=== PATIENT | female | born 1980 | race African-American/Black ===

== ENCOUNTER 2016-12-08 16:20 | Inpatient (IN) | payer SELFPAY ==
[~2016-12-08] VITALS: Ht 170.2 cm; Wt 96.1 kg
[~2016-12-08 16:20] MED LIST: CLIN1CAP6 PO; LORTA5 PO
[2016-12-08 16:21] VITALS: BP 155/95; PULSE 118; RESP 24; TEMP 103.3; O2SAT 100
[2016-12-08] MEDS ORDERED: SODIUM CHLOR 0.9% 1000 ML INJ 1,000 ML IV SCH (16:34)
[2016-12-08] MEDS ORDERED: SODIUM CHLORIDE 0.9% FLUSH 5 ML FLUSH IVF PRN (16:45)
[2016-12-08] MEDS ORDERED: ONDANSETRON HCL 4 MG/2 ML VIAL IVP ONE (16:45)
--- NOTE | 2016-12-08 16:45 | PD ---
HPI Chief Complaint: Cold / Flu Symptoms Time Seen by Provider: 16:34 Travel History International Travel<30 days: No Contact w/Intl Traveler<30days: No Traveled to known affect area: No History of Present Illness HPI 36-year-old female patient with history of hypertension, presents to the ER today for 2 days history of cough, sore throat, malaise, body aches, chest pain , fevers, nausea, vomiting, and diarrhea. She states that she has been staying with a friend for 2 days and she has been sleeping on the floor, states that she is not sure whether her friend is sick. Modifying Factors: None Associated Signs & Symptoms: Body aches, cough, sore throat, headaches, nausea, vomiting, diarrhea, chest pains Risk Factors: None PFSH Past Medical History Anxiety: Yes Depression: Yes Hypertension: Yes Medical other: Yes (MRSA) Immunizations Current: Yes ?: Not : 5 Para: 5 Tubal Ligation: Yes Past Surgical History Section: Yes Cholecystectomy: Yes Other Surgery: Yes (SCOPE) Social History Alcohol Use: No Tobacco Use: No Substance Use: Yes (weed, has taken lortab, percocet, cocaine recently) Allergies-Medications (Allergen,Severity, Reaction): Coded Allergies: Amoxicillin (Verified Allergy, Intermediate, hives, 12/08/16) Penicillin (Verified Allergy, Intermediate, hives, 12/08/16) Reported Meds & Prescriptions Reported Meds & Active Scripts Active No Active Prescriptions or Reported Medications Review of Systems Except as stated in HPI: all other systems reviewed are Neg Physical Exam Narrative GENERAL: Middle-age well-developed -[place] female in moderate distress , vomiting in the ER. Alert, awake, oriented 3. SKIN: Warm and dry. HEAD: Atraumatic. Normocephalic. EYES: Pupils equal and round. No scleral icterus. No injection or drainage. ENT: No nasal bleeding or discharge. Mucous membranes pink and moist. Significant pharyngeal erythema with notable for whitish tonsillar exudates. NECK: Trachea midline. No JVD. CARDIOVASCULAR: Regular rate and rhythm. No murmur appreciated. RESPIRATORY: No accessory muscle use. Clear to auscultation. Breath sounds equal bilaterally. GASTROINTESTINAL: Abdomen soft, mild epigastric tenderness without guarding or rebound, nondistended. Hepatic and splenic margins not palpable. MUSCULOSKELETAL: No obvious deformities. No clubbing. No cyanosis. No edema. NEUROLOGICAL: Awake and alert. No obvious cranial nerve deficits. Motor grossly within normal limits. Normal speech. PSYCHIATRIC: Appropriate mood and affect; insight and judgment normal. Data Data Last Documented VS Vital Signs Date Time Temp Pulse Resp B/P Pulse Ox O2 Delivery O2 Flow Rate FiO2 12/08/16 19:02 97 16 137/92 100 Room Air 12/08/16 16:21 103.3 Orders Complete Blood Count With Diff (12/08/16 16:34) Comprehensive Metabolic Panel (12/08/16 16:34) Lipase (12/08/16 16:34) Urinalysis - C+S If Indicated (12/08/16 16:34) Iv Access Insert/Monitor (12/08/16 16:34) Ecg Monitoring (12/08/16 16:34) Oximetry (12/08/16 16:34) Ondansetron Inj (Zofran Inj) (12/08/16 16:45) Sodium Chlor 0.9% 1000 Ml Inj (Ns 1000 M (12/08/16 16:34) Sodium Chloride 0.9% Flush (Ns Flush) (12/08/16 16:45) Electrocardiogram (12/08/16 16:34) Chest, Single Ap (12/08/16 16:34) Ed Urine Pregnancytest Poc (12/08/16 16:34) Group A Rapid Strep Screen (12/08/16 16:34) Influenzae A/B Antigen (12/08/16 16:34) Blood Culture (12/08/16 16:39) Lactic Acid Sepsis Protocol (12/08/16 16:39) Strep Culture (Group A) (12/08/16 16:40) Vancomycin Inj (Vancomycin Inj) (12/08/16 17:58) Cefepime Inj (Maxipime Inj) (12/08/16 17:58) Urinary Catheter Insert/Apply (12/08/16 18:01) Morphine Inj (Morphine Inj) (12/08/16 18:45) Admit Order (Ed Use Only) (12/08/16 19:01) Labs Laboratory Tests Test 12/08/16 12/08/16 12/08/16 16:40 16:45 17:00 White Blood Count 22.0 TH/MM3 Red Blood Count 4.93 MIL/MM3 Hemoglobin 12.9 GM/DL Hematocrit 40.4 % Mean Corpuscular Volume 82.0 FL Mean Corpuscular Hemoglobin 26.3 PG Mean Corpuscular Hemoglobin 32.0 % Concent Red Cell Distribution Width 15.9 % Platelet Count 344 TH/MM3 Mean Platelet Volume 8.1 FL Neutrophils (%) (Auto) 89.4 % Lymphocytes (%) (Auto) 6.0 % Monocytes (%) (Auto) 4.3 % Eosinophils (%) (Auto) 0.0 % Basophils (%) (Auto) 0.3 % Neutrophils # (Auto) 19.6 TH/MM3 Lymphocytes # (Auto) 1.3 TH/MM3 Monocytes # (Auto) 0.9 TH/MM3 Eosinophils # (Auto) 0.0 TH/MM3 Basophils # (Auto) 0.1 TH/MM3 CBC Comment DIFF FINAL Differential Comment Sodium Level 137 MEQ/L Potassium Level 3.5 MEQ/L Chloride Level 100 MEQ/L Carbon Dioxide Level 28.7 MEQ/L Anion Gap 8 MEQ/L Blood Urea Nitrogen 9 MG/DL Creatinine 1.02 MG/DL Estimat Glomerular Filtration 73 ML/MIN Rate Random Glucose 97 MG/DL Calcium Level 9.7 MG/DL Total Bilirubin 0.8 MG/DL Aspartate Amino Transf 32 U/L (AST/SGOT) Alanine Aminotransferase 27 U/L (ALT/SGPT) Alkaline Phosphatase 94 U/L Total Protein 8.9 GM/DL Albumin 4.1 GM/DL Lipase 117 U/L Lactic Acid Level 1.9 mmol/L Urine Color LIGHT-YELLOW Urine Turbidity CLEAR Urine pH 8.0 Urine Specific Sunburst 1.005 Urine Protein NEG mg/dL Urine Glucose (UA) NEG mg/dL Urine Ketones NEG mg/dL Urine Occult Blood TRACE Urine Nitrite NEG Urine Bilirubin NEG Urine Urobilinogen LESS THAN 2.0 MG/DL Urine Leukocyte Esterase NEG Urine RBC 1 /hpf Urine WBC LESS THAN 1 /hpf Urine Squamous Epithelial 4 /hpf Cells Urine Bacteria RARE /hpf Microscopic Urinalysis Comment CULT NOT INDICATED MDM Medical Decision Making Medical Screen Exam Complete: Yes Emergency Medical Condition: Yes Medical Record Reviewed: Yes Interpretation(s) Laboratory Tests Test 12/08/16 12/08/16 16:40 17:00 White Blood Count 22.0 TH/MM3 (4.0-11.0) Mean Corpuscular Hemoglobin 26.3 PG (27.0-34.0) Neutrophils (%) (Auto) 89.4 % (16.0-70.0) Lymphocytes (%) (Auto) 6.0 % (9.0-44.0) Neutrophils # (Auto) 19.6 TH/MM3 (1.8-7.7) Creatinine 1.02 MG/DL (0.50-1.00) Estimat Glomerular Filtration 73 ML/MIN (>89) Rate Total Protein 8.9 GM/DL (6.4-8.2) Urine Occult Blood TRACE (NEG) Urine Bacteria RARE /hpf (NONE) Last 24 hours Impressions Chest X-Ray 12/08/16 1634 Signed Impressions: Service Date/Time: November 18:13 - CONCLUSION: No evidence of acute cardiopulmonary disease. Rudy Schaeffer MD Differential Diagnosis Influenza versus viral syndrome versus strep pharyngitis versus sepsis versus dehydration versus metabolic issues Narrative Course Chest x-ray did not show any signs of acute pulmonary processes. Patient does not have influenza. UA did not show any signs of significant UTI. She has significant leukocytosis. IV fluids and IV anti-eyes were initiated after cultures have been drawn. At this point, my plan would be to admit her for further treatment evaluation of sepsis of unknown origins. Case is discussed with Dr. Bernabe for admission. Sepsis Criteria SIRS Criteria (2 or more): Temp > 100.9 or < 96.8, Heart rate over 90, WBC > 44076, < 4000 or > 10% bands Severe Sepsis (+one): Lactate >2 Diagnosis Primary Impression: Sepsis Admitting Information Admitting Physician Requests: Admit Scripts No Active Prescriptions or Reported Meds Catarino Linares MD Dec 08, 2016 16:45
[2016-12-08 17:13] LABS: AUTOMATED NEUTROPHIL # 19.6 TH/MM3 (1.8-7.7); BASOPHIL # 0.1 TH/MM3 (0-0.2); BASOPHIL % 0.3 % (0.0-2.0); HEMATOCRIT 40.4 % (35.0-46.0); HEMO FLAGS DIFF FINAL; LYMPHOCYTE # 1.3 TH/MM3 (1.0-4.8); MEAN CORPUSCULAR HEMOGLOBIN 26.3 PG (27.0-34.0); MONO % 4.3 % (0.0-8.0); NEUT % 89.4 % (16.0-70.0); PLATELET COUNT 344 TH/MM3 (150-450); RED BLOOD COUNT 4.93 MIL/MM3 (4.00-5.30); RED CELL DISTRIBUTION WIDTH 15.9 % (11.6-17.2)
[2016-12-08 17:27] LABS: ALKALINE PHOSPHATASE 94 U/L (45-117); TOTAL BILIRUBIN ADULT 0.8 MG/DL (0.2-1.0)
[2016-12-08 17:28] LABS: ALT (GPT) 27 U/L (10-53); ANION GAP 8 MEQ/L (5-15); AST (GOT) 32 U/L (15-37); BICARBONATE 28.7 MEQ/L (21.0-32.0); BLOOD UREA NITROGEN 9 MG/DL (7-18); CHLORIDE 100 MEQ/L (98-107); GLOMERULAR FILTRATION RATE 73 ML/MIN (>89); SODIUM (NA) 137 MEQ/L (136-145)
[2016-12-08 17:31] LABS: POTASSIUM 3.5 MEQ/L (3.5-5.1)
[2016-12-08 17:54] LABS: BACTERIA, URINE RARE /hpf; BLOOD, URINE TRACE (NEG); COMMENT (UR) CULT NOT INDICATED; CULTURE IF INDICATED CULT NOT INDICATED; GLUCOSE,URINE NEG (NEG); KETONE, URINE NEG (NEG); NITRITE,URINE NEG (NEG); SQUAMOUS EPITHELIAL CELL URINE 4 /hpf (0-5); URINE COLOR LIGHT-YELLOW (YELLW/STRAW)
[2016-12-08] MEDS ORDERED: VANCOMYCIN INJ 1,000 MG in SODIUM CHLOR 0.9% 250 ML INJ 250 ML IV STA (17:58)
[2016-12-08] MEDS ORDERED: CEFEPIME INJ 2,000 MG in SODIUM CHLORIDE 0.9% INJ 100 ML IV STA (17:58)
[2016-12-08] MEDS ORDERED: MORPHINE SULFATE 4 MG/ML INJ IV PUSH ONE (18:45)
--- NOTE | 2016-12-08 18:49 | RADRPT ---
EXAM DATE/TIME: 12/08/2016 18:13 [facility] COMPARISON: No previous studies available for comparison. INDICATIONS : Short of breath, vomiting. MEDICAL HISTORY : None. SURGICAL HISTORY : None. ENCOUNTER: Initial ACUITY: 1 day PAIN SCORE: 0/10 LOCATION: Bilateral chest FINDINGS: A single view of the chest demonstrates the lungs to be symmetrically aerated without evidence of mas s, infiltrate or effusion. The cardiomediastinal contours are unremarkable. Osseous structures are intact. CONCLUSION: No evidence of acute cardiopulmonary disease. Rudy Schaeffer MD on December 08, 2016 at 18:48 Board Certified Radiologist. This report was verified electronically.
[2016-12-08 19:02] VITALS: BP 137/92; PULSE 97; RESP 16; O2SAT 100
[2016-12-08] MEDS ORDERED: SODIUM CHLORIDE 0.9% FLUSH 5 ML FLUSH FLUSH PRN (20:00)
[2016-12-08] MEDS ORDERED: NALOXONE HCL 0.4 MG/ML AMP IV PRN (20:00)
[2016-12-08 20:08] VITALS: BP 137/95; PULSE 100; RESP 16; TEMP 100.7; O2SAT 100
[2016-12-08] MEDS ORDERED: DIATRIZOATE MEGLUM/DIATRIZOATE SOD 9 ML CUP PO ONE (20:45)
[2016-12-08] MEDS ORDERED: DIATRIZOATE MEGLUM/DIATRIZOATE SOD 9 ML CUP ONE (20:54)
[2016-12-08] MEDS: MORPHINE SULFATE 4 MG/ML INJ IV PUSH PRN (21:05)
[2016-12-08] MEDS: ACETAMINOPHEN 325 MG TAB PO PRN (21:05)
[2016-12-08 21:06] VITALS: BP 154/98; TEMP 100
[2016-12-08] MEDS: SODIUM CHLORIDE 0.9% FLUSH 5 ML FLUSH FLUSH SCH (21:06)
[2016-12-08 21:48] VITALS: BP 142/80; PULSE 92; RESP 20; TEMP 100.5; O2SAT 100
--- NOTE | 2016-12-08 22:10 | HHI.HP ---
[facility] No Primary Care Physician Admission Diagnosis sepsis Diagnoses: Chief Complaint: cough, sore throat ,abdominal pain Travel History International Travel<30 Days: No Contact w/Intl Traveler <30 Da: No Traveled to Known Affected Are: No Sepsis Criteria SIRS Criteria (2 or more): Temp > 100.9 or < 96.8, Heart rate over 90, WBC > 71090, < 4000 or > 10% bands History of Present Illness 36 y/o female with a history of HTN, anxiety and depression who is currently homeless presented to the ER with complains of cough, sore throat, weakness, nausea, vomiting and diarrhea. Patient states all her symptoms began 2 days ago and she has been very weak. She states she has had vomiting 2-3 times a day and diarrhea 5 times a day. She currently is sleeping on a friends floor and does not think anyone is sick. She states last week she thought she has a yeast infection and treated it with Monistat but is unsure if she still has it. She is acting as if she is in sever pain and moaning. She states her abdominal pain radiates to her back and is sharp. When she is asked many questions she moans louder. She does deny any chest pain or short of breath. Patient does not take any medications at home due to lack of insurance. Review of Systems Constitutional: COMPLAINS OF: Fever, Chills Respiratory: COMPLAINS OF: Cough, DENIES: Sputum production, Shortness of breath Cardiovascular: COMPLAINS OF: Chest pain Gastrointestinal: COMPLAINS OF: Abdominal pain, Diarrhea, Nausea, Vomiting, DENIES: Constipation Genitourinary: DENIES: Hematuria, Dysuria Musculoskeletal: COMPLAINS OF: Back pain, DENIES: Neck pain Past Family Social History Past Medical History HTN Anxiety Depression MRSA Past Surgical History Tubal Cholecystectomy C section Reported Medications Reported Meds & Active Scripts Active No Active Prescriptions or Reported Medications Allergies: Coded Allergies: Amoxicillin (Verified Allergy, Intermediate, hives, 12/08/16) Penicillin (Verified Allergy, Intermediate, hives, 12/08/16) Active Ordered Medications Current Medications Medications (Trade) Dose Ordered Sig/Yesenia Route Start Time Stop Time Status Last Admin (NS Flush) 2 ml UNSCH PRN FLUSH 12/08/16 20:00 (NS Flush) 2 ml BID FLUSH 12/08/16 21:00 12/08/16 21:06 Naloxone HCl 0.4 mg 0.4 mg UNSCH PRN IV 12/08/16 20:00 (Levaquin 750 Mg Premix Inj) 150 ml @ 100 mls/hr Q24H IV 12/09/16 09:00 (Tylenol) 650 mg Q4H PRN PO 12/08/16 20:45 12/08/16 21:05 (Morphine Inj) 2 mg Q3H PRN IV PUSH 12/08/16 20:45 12/09/16 00:39 Family History Patient history significant for psych disorders, no known cardiac history Social History Tobacco use: denies Alcohol use: denies Illicit drug use: marijuana and cocaine Physical Exam Vital Signs Vital Signs Date Time Temp Pulse Resp B/P Pulse Ox O2 Delivery O2 Flow Rate FiO2 12/08/16 21:48 100.5 92 20 142/80 100 12/08/16 21:06 100.0 96 16 154/98 98 12/08/16 20:08 100.7 100 16 137/95 100 Room Air 12/08/16 19:02 97 16 137/92 100 Room Air 12/08/16 16:21 103.3 118 24 155/95 100 Room Air Physical Exam GENERAL: This is a well-nourished, well-developed patient, who is moaning SKIN: Occipital cyst noted HEAD: Atraumatic. Normocephalic. EYES: Pupils equal round and reactive. Extraocular motions intact. ENT: Nose without bleeding, purulent drainage or septal hematoma. Airway patent. NECK: Trachea midline. No JVD CARDIOVASCULAR: Regular rate and rhythm without murmurs, gallops, or rubs. RESPIRATORY: Clear to auscultation. Breath sounds equal bilaterally. No wheezes , rales, or rhonchi. GASTROINTESTINAL: Abdomen soft, non-tender, nondistended. No hepato-splenomegaly , or palpable masses. No guarding. MUSCULOSKELETAL: Extremities without clubbing, cyanosis, or edema. No joint tenderness, effusion, or edema noted. No calf tenderness. NEUROLOGICAL: Awake and alert. Motor and sensory grossly within normal limits. Normal speech. Laboratory Laboratory Tests Test 12/08/16 12/08/16 12/08/16 16:40 16:45 17:00 White Blood Count 22.0 Red Blood Count 4.93 Hemoglobin 12.9 Hematocrit 40.4 Mean Corpuscular Volume 82.0 Mean Corpuscular Hemoglobin 26.3 Mean Corpuscular Hemoglobin 32.0 Concent Red Cell Distribution Width 15.9 Platelet Count 344 Mean Platelet Volume 8.1 Neutrophils (%) (Auto) 89.4 Lymphocytes (%) (Auto) 6.0 Monocytes (%) (Auto) 4.3 Eosinophils (%) (Auto) 0.0 Basophils (%) (Auto) 0.3 Neutrophils # (Auto) 19.6 Lymphocytes # (Auto) 1.3 Monocytes # (Auto) 0.9 Eosinophils # (Auto) 0.0 Basophils # (Auto) 0.1 CBC Comment DIFF FINAL Differential Comment Sodium Level 137 Potassium Level 3.5 Chloride Level 100 Carbon Dioxide Level 28.7 Anion Gap 8 Blood Urea Nitrogen 9 Creatinine 1.02 Estimat Glomerular Filtration 73 Rate Random Glucose 97 Calcium Level 9.7 Total Bilirubin 0.8 Aspartate Amino Transf 32 (AST/SGOT) Alanine Aminotransferase 27 (ALT/SGPT) Alkaline Phosphatase 94 Total Protein 8.9 Albumin 4.1 Lipase 117 Lactic Acid Level 1.9 Urine Color LIGHT-YELLOW Urine Turbidity CLEAR Urine pH 8.0 Urine Specific Cobb 1.005 Urine Protein NEG Urine Glucose (UA) NEG Urine Ketones NEG Urine Occult Blood TRACE Urine Nitrite NEG Urine Bilirubin NEG Urine Urobilinogen LESS THAN 2.0 Urine Leukocyte Esterase NEG Urine RBC 1 Urine WBC LESS THAN 1 Urine Squamous Epithelial 4 Cells Urine Bacteria RARE Microscopic Urinalysis Comment CULT NOT INDICATED Date/Time Procedure Status Source Growth 12/08/16 16:45 Aerobic Blood Culture Received Blood Peripheral Pending 12/08/16 16:45 Anaerobic Blood Culture Received Blood Peripheral Pending 12/08/16 16:40 Influenza Types A,B Antigen (SUSANA) - Final Complete Nasal Washing NEGATIVE FOR FLU A AND B ANTIGEN.... 12/08/16 16:40 Group A Streptococcus Screen (SUSANA) - Final Complete Throat 12/08/16 16:40 Group A Streptococcus Screen Received Throat Pending Result Diagram: 12/08/16 1640 12/08/16 1640 Imaging Last Impressions Chest X-Ray 12/08/16 1634 Signed Impressions: Service Date/Time: November 18:13 - CONCLUSION: No evidence of acute cardiopulmonary disease. Rudy Schaeffer MD Assessment and Plan Problem List: (1) SIRS (systemic inflammatory response syndrome) ICD Code: R65.10 Status: Acute (2) Abdominal pain ICD Code: R10.9 Status: Acute Assessment and Plan 36 y/o female with a history of HTN, anxiety and depression who is currently homeless presented to the ER with complains of cough, sore throat, weakness, nausea, vomiting and diarrhea. SIRS, per criteria WBC 22, Temp 103.3, source unknown Labs: UA negative, flu negative Images: chest xray unremarkable -Throat screen negative, culture pending -Levaquin IV -Blood cultures pending Abdominal pain, acute Images: CT abdomen unremarkable -Pain management with IV morphine DVT prophylaxis: SCDs Written by Marjan SHERMAN, acting as scribe for Dr. Bernabe on 12/08/16 at 2337. All or portions of this note were transcribed by scribe [Marjan Yan]. I, Dr. Calixto Bernabe personally performed the history, physical exam, and medical decision making; and confirmed the accuracy of the information in the transcribed note. Authenticated by Dr. Calixto Bernabe on 12/08/16 at 2337. Discussed Condition With Patient, RN and ED physician Marjan Yan Dec 08, 2016 22:10 Calixto Bernabe MD Dec 09, 2016 08:33
[2016-12-09] VITALS (7 sets, daily range): BP systolic 103–127; BP diastolic 59–83; PULSE 61–93; RESP 18–20; TEMP 98.4–100.6; O2SAT 98–100
[2016-12-09] MEDS: MORPHINE SULFATE 4 MG/ML INJ IV PUSH PRN ×3 (00:39→05:52)
[2016-12-09] MEDS ORDERED: IOHEXOL 350 MG/ML 10 ML VIAL (for RAD DIAG) IV ONE (01:00)
--- NOTE | 2016-12-09 01:27 | RADRPT ---
EXAM DATE/TIME: 12/09/2016 00:54 [facility] COMPARISON: No previous studies available for comparison. INDICATIONS : Abdominal pain with radiation to back. Septic with nausea, vomiting, and diarrhea. IV CONTRAST: 100 cc Omnipaque 350 (iohexol) IV ORAL CONTRAST: Prescribed oral contrast ingested. RADIATION DOSE: 15.87 CTDIvol (mGy) MEDICAL HISTORY : Hypertension. SURGICAL HISTORY : Cholecystectomy. Tubal ligation. ENCOUNTER: Initial ACUITY: 1 day PAIN SCALE: 5/10 LOCATION: abdomen TECHNIQUE: Volumetric scanning of the abdomen and pelvis was performed. Using automated exposure control and ad justment of the mA and/or kV according to patient size, radiation dose was kept as low as reasonably achievable to obtain optimal diagnostic quality images. FINDINGS: Lung bases are clear. No acute findings in the liver, spleen, adrenals, kidneys or pancreas. Previous cholecystectomy. Common bile duct measures about 7 mm in diameter. No free fluid. No bowel obstruction. No adenopathy. Bladder decompressed by Hall. No acute bony abno rmalities. CONCLUSION: 1. No acute findings. Postoperative cholecystectomy with mildly prominent biliary ductal system. Blad josesito decompressed by Hall. Heriberto Abbott MD on December 09, 2016 at 1:20 Board Certified Radiologist. This report was verified electronically.
[2016-12-09 04:30] LABS: AUTOMATED NEUTROPHIL # 12.4 TH/MM3 (1.8-7.7); BASOPHIL # 0.1 TH/MM3 (0-0.2); BASOPHIL % 0.4 % (0.0-2.0); EOSINOPHIL % 0.3 % (0.0-4.0); HEMATOCRIT 35.4 % (35.0-46.0); HEMO FLAGS DIFF FINAL; LYMPH % 13.2 % (9.0-44.0); LYMPHOCYTE # 2.1 TH/MM3 (1.0-4.8); MEAN CELL VOLUME 81.6 FL (80.0-100.0); MEAN CORPUSCULAR HEMOGLOBIN 26.7 PG (27.0-34.0); MEAN CORPUSCULAR HGB CONC 32.7 % (32.0-36.0); MONO % 6.8 % (0.0-8.0); NEUT % 79.3 % (16.0-70.0); PLATELET COUNT 277 TH/MM3 (150-450); RED BLOOD COUNT 4.34 MIL/MM3 (4.00-5.30); WHITE BLOOD COUNT 15.7 TH/MM3 (4.0-11.0)
[2016-12-09 05:06] LABS: BICARBONATE 26.7 MEQ/L (21.0-32.0); POTASSIUM 3.2 MEQ/L (3.5-5.1)
[2016-12-09] MEDS: ACETAMINOPHEN 325 MG TAB PO PRN (06:00)
[2016-12-09] MEDS: SODIUM CHLORIDE 0.9% FLUSH 5 ML FLUSH FLUSH SCH ×2 (08:05→19:46)
[2016-12-09] MEDS: LEVOFLOXACIN 750 MG PREMIX INJ 150 ML IV SCH (08:05)
[2016-12-09] MEDS: diphenhydrAMINE HCL 25 MG CAP PO PRN ×3 (08:48→21:02)
[2016-12-09] MEDS: ACETAMINOPHEN/HYDROcodone 325 MG/7.5 MG TAB PO PRN ×4 (08:48→21:02)
--- NOTE | 2016-12-09 09:08 | HHI.PR ---
Subjective Remarks Follow-up SIRS/febrile episode/diarrhea episode 12/09/16-patient seen and examined, continue to spike fevers and reported diarrheal episode. She complains of abdominal pain. Objective Vitals Vital Signs Date Time Temp Pulse Resp B/P Pulse Ox O2 Delivery O2 Flow Rate FiO2 12/09/16 08:15 99.4 93 18 113/65 99 12/09/16 05:53 100.6 12/09/16 00:00 99.5 82 20 120/83 100 12/08/16 21:48 100.5 92 20 142/80 100 12/08/16 21:06 100.0 96 16 154/98 98 12/08/16 20:08 100.7 100 16 137/95 100 Room Air 12/08/16 19:02 97 16 137/92 100 Room Air 12/08/16 16:21 103.3 118 24 155/95 100 Room Air I/O 12/08/16 12/08/16 12/08/16 12/09/16 12/09/16 12/09/16 07:00 15:00 23:00 07:00 15:00 23:00 Intake Total 1300 ml 120 ml Output Total 300 ml 1400 ml Balance 1000 ml -1280 ml Intake Oral 120 ml IV Total 1300 ml Output Urine Total 300 ml 1400 ml Result Diagram: 12/09/16 0328 12/09/16 0328 Imaging Last Impressions Abdomen/Pelvis CT 12/09/16 0000 Signed Impressions: Service Date/Time: Friday, December 09, 2016 00:54 - CONCLUSION: 1. No acute findings. Postoperative cholecystectomy with mildly prominent biliary ductal system. Bladder decompressed by Hall. Heriberto Abbott MD Chest X-Ray 12/08/16 1634 Signed Impressions: Service Date/Time: November 18:13 - CONCLUSION: No evidence of acute cardiopulmonary disease. Rudy Schaeffer MD Objective Remarks GENERAL: in Mild distress SKIN: Warm and dry. HEAD: Normocephalic. EYES: No scleral icterus. No injection or drainage. NECK: Supple, trachea midline. No JVD or lymphadenopathy. CARDIOVASCULAR: Regular rate and rhythm without murmurs, gallops, or rubs. RESPIRATORY: Breath sounds equal bilaterally. No accessory muscle use. GASTROINTESTINAL: Abdomen soft, mildly tender, nondistended. Positive bowel sounds MUSCULOSKELETAL: No cyanosis, or edema. BACK: Nontender without obvious deformity. No CVA tenderness. A/P Problem List: (1) SIRS (systemic inflammatory response syndrome) ICD Code: R65.10 Status: Acute (2) Abdominal pain ICD Code: R10.9 Status: Acute Assessment and Plan 36-year-old female with 1-SIRS: May be secondary to intra-abdominal process. Currently on IV Levaquin pending culture reports 2-Febrile episode: Chest x-ray without any cardio pulmonary disease, CT abdomen/ pelvics negative however may consider CT chest as patient still spiking fevers GAS pending. Flu A and B antigens negative. Check 2-D echo to rule out endocarditis as well as UDS as patient with history of homelessness. Continue with current empiric antibiotic 3-Abdominal pain associated with diarrheal episode: CT abdomen/pelvic with no acute finding Rule out C. difficile with C. difficile PCR as well as check stool ova and parasite. Start Lactinex 4-Hypokalemia: Replace electrolyte with 60 mEq potassium 1 now 5-DVT prophylaxis: Bilateral SCDs Cuong Lind MD Dec 09, 2016 09:08
[2016-12-09] MEDS: SODIUM CHLOR 0.9% 1000 ML INJ 1,000 ML IV SCH ×2 (09:35→19:46)
[2016-12-09] MEDS ORDERED: POTASSIUM CHLORIDE 20 MEQ CONTROLLED RELEASE TAB PO ONE (10:00)
[2016-12-09 10:14] LABS: AMPHETAMINE, URINE NEG (NEG); BARBITURATES, URINE NEG (NEG); COCAINE, URINE POS (NEG)
--- NOTE | 2016-12-09 14:54 | EKG ---
Date Performed: 12/08/2016 Time Performed: 16:45:35 PTAGE: 36 years EKG: Sinus rhythm NORMAL ECG NO PREVIOUS TRACING DOCTOR: Charline Arguello Interpretating Date/Time 12/09/2016 14:52:06
--- NOTE | 2016-12-09 15:19 | EC ---
Study Study Date:12/09/2016 STUDY CONCLUSIONS SUMMARY LEFT VENTRICLE: The cavity size was normal. Wall thickness was normal. Systolic function was normal. The estimated ejection fraction was in the range of 50% to 55%. Wall motion was normal; there were no regional wall motion abnormalities. Impressions: No evidence of endocarditis. If LV function is below 40, please consider prescribing an ACEI or ARB or document rationale for non-use. PROCEDURE DATA STUDY STATUS: Elective. Procedure: Transthoracic echocardiography. Image quality was good. Scanning was performed from the parasternal, apical, and subcostal acoustic windows. Study completion: The patient tolerated the procedure well. Transthoracic echocardiography. M-mode, complete 2D, complete spectral Doppler, and color Doppler. Patient status: Inpatient. CARDIAC ANATOMY LEFT VENTRICLE: The cavity size was normal. Wall thickness was normal. Systolic function was normal. The estimated ejection fraction was in the range of 50% to 55%. Wall motion was normal; there were no regional wall motion abnormalities. AORTIC VALVE: Trileaflet; normal thickness leaflets. Doppler: Transvalvular velocity was within the normal range. There was no stenosis. No regurgitation. AORTA: Aortic root: The aortic root was normal in size. MITRAL VALVE: Structurally normal valve. Doppler: Transvalvular velocity was within the normal range. There was no evidence for stenosis. No regurgitation. Peak gradient: 2mm Hg (D). LEFT ATRIUM: The atrium was normal in size. RIGHT VENTRICLE: The cavity size was normal. Wall thickness was normal. PULMONIC VALVE: Doppler: Transvalvular velocity was within the normal range. There was no evidence for stenosis. No regurgitation. TRICUSPID VALVE: Structurally normal valve. Doppler: Transvalvular velocity was within the normal range. Trace regurgitation. PULMONARY ARTERY: The main pulmonary artery was normal-sized. Systolic pressure was within the normal range. RIGHT ATRIUM: The atrium was normal in size. PERICARDIUM: There was no pericardial effusion. SYSTEMIC VEINS: Inferior vena cava: The vessel was normal in size. BASIC MEASUREMENTS ADULT Normal Left ventricle LV internal dimension, ED, chordal level, 45.1 mm 43-52 PLAX LV internal dimension, ES, chordal level, 35 mm 23-38 PLAX Fractional shortening, chordal level, PLAX *22 % >29 LV posterior wall thickness, ED 7.17 mm IVS/LVPW ratio, ED *1.62 <1.3 Ventricular septum Septal thickness, ED 11.6 mm Aortic valve Leaflet separation 24 mm 15-26 Left atrium Anterior-posterior dimension 37 mm Right ventricle RV internal dimension, ED, PLAX 23.4 mm 19-38 BASIC MEASUREMENTS ADULT Normal Aortic valve Leaflet separation 24 mm 15-26 Aorta Root diameter, ED 30 mm 20-37 DOPPLER MEASUREMENTS ADULT Normal Mitral valve Peak E-wave velocity 73.1 cm/s Peak A-wave velocity 79 cm/s Peak gradient, D 2 mm Hg Peak E/A ratio 0.9 Tricuspid valve Regurgitant peak velocity 194 cm/s Peak RV-RA gradient, S 15 mm Hg Maximal regurgitant velocity 194 cm/s LEGEND: Mean values are shown as u=mean value. Asterisk (*) bradley values outside specified normal range. Prepared and signed by Juan Pablo Lindsay [id number]
[2016-12-09 20:20] LABS: C. DIFF EPI 027 PRESUMPTIVE NEGATIVE (NEGATIVE); C. DIFF TOXIN PCR NEGATIVE (NEGATIVE)
[2016-12-09] MEDS: ONDANSETRON HCL 4 MG/2 ML VIAL IV PUSH PRN (21:04)
[2016-12-10] VITALS (8 sets, daily range): BP systolic 120–171; BP diastolic 61–105; PULSE 61–73; RESP 18–20; TEMP 97.3–99; O2SAT 98–100
[2016-12-10] MEDS: ACETAMINOPHEN/HYDROcodone 325 MG/7.5 MG TAB PO PRN ×5 (01:21→20:37)
[2016-12-10] MEDS: ONDANSETRON HCL 4 MG/2 ML VIAL IV PUSH PRN ×3 (03:39→19:39)
[2016-12-10] MEDS: diphenhydrAMINE HCL 25 MG CAP PO PRN ×3 (03:39→19:39)
[2016-12-10 05:14] LABS: AUTOMATED NEUTROPHIL # 8.3 TH/MM3 (1.8-7.7); BASOPHIL # 0.1 TH/MM3 (0-0.2); BASOPHIL % 0.5 % (0.0-2.0); EOSINOPHIL # 0.2 TH/MM3 (0-0.4); EOSINOPHIL % 1.3 % (0.0-4.0); HEMATOCRIT 34.8 % (35.0-46.0); HEMO FLAGS DIFF FINAL; LYMPH % 21.2 % (9.0-44.0); LYMPHOCYTE # 2.6 TH/MM3 (1.0-4.8); MEAN CELL VOLUME 83.3 FL (80.0-100.0); MEAN CORPUSCULAR HEMOGLOBIN 26.6 PG (27.0-34.0); MEAN CORPUSCULAR HGB CONC 31.9 % (32.0-36.0); MONO % 8.6 % (0.0-8.0); NEUT % 68.4 % (16.0-70.0); PLATELET COUNT 265 TH/MM3 (150-450); RED BLOOD COUNT 4.18 MIL/MM3 (4.00-5.30); RED CELL DISTRIBUTION WIDTH 16.1 % (11.6-17.2); WHITE BLOOD COUNT 12.2 TH/MM3 (4.0-11.0)
[2016-12-10 05:36] LABS: ALKALINE PHOSPHATASE 73 U/L (45-117); ALT (GPT) 22 U/L (10-53); ANION GAP 8 MEQ/L (5-15); AST (GOT) 16 U/L (15-37); BICARBONATE 24.2 MEQ/L (21.0-32.0); BLOOD UREA NITROGEN 9 MG/DL (7-18); CHLORIDE 109 MEQ/L (98-107); GLOMERULAR FILTRATION RATE 86 ML/MIN (>89); POTASSIUM 3.8 MEQ/L (3.5-5.1); SODIUM (NA) 141 MEQ/L (136-145); TOTAL BILIRUBIN ADULT 0.3 MG/DL (0.2-1.0)
[2016-12-10] MEDS: LEVOFLOXACIN 750 MG PREMIX INJ 150 ML IV SCH (08:59)
[2016-12-10] MEDS: SODIUM CHLORIDE 0.9% FLUSH 5 ML FLUSH FLUSH SCH ×2 (09:00→19:38)
[2016-12-10] MEDS: SODIUM CHLOR 0.9% 1000 ML INJ 1,000 ML IV SCH ×2 (09:02→19:38)
--- NOTE | 2016-12-10 11:01 | HHI.PR ---
Subjective Remarks Follow-up SIRS/febrile episode/diarrhea episode 12/09/16-patient seen and examined, continue to spike fevers and reported diarrheal episode. She complains of abdominal pain. 12/10/16-patient seen and examined, afebrile. Still complains of diarrheal episode. UDS positive for cocaine, marijuana. Objective Vitals Vital Signs Date Time Temp Pulse Resp B/P Pulse Ox O2 Delivery O2 Flow Rate FiO2 12/10/16 08:00 97.5 61 18 129/84 100 12/10/16 04:00 99.0 68 20 125/61 99 12/10/16 00:00 99.0 73 20 121/79 100 12/09/16 20:00 82 12/09/16 20:00 98.9 76 20 127/82 98 12/09/16 17:28 18 12/09/16 16:00 99.3 82 20 125/71 99 12/09/16 12:10 98.4 66 18 103/59 98 I/O 12/09/16 12/09/16 12/09/16 12/10/16 12/10/16 12/10/16 07:00 15:00 23:00 07:00 15:00 23:00 Intake Total 120 ml 689 ml 855 ml 1374 ml Output Total 1400 ml 600 ml 500 ml 1100 ml Balance -1280 ml 89 ml 355 ml 274 ml Intake Oral 120 ml 480 ml 480 ml 720 ml IV Total 209 ml 375 ml 654 ml Output Urine Total 1400 ml 600 ml 500 ml 1100 ml # Bowel Movements 0 1 Result Diagram: 12/10/16 0400 12/10/16 0400 Imaging Last Impressions Abdomen/Pelvis CT 12/09/16 0000 Signed Impressions: Service Date/Time: Friday, December 09, 2016 00:54 - CONCLUSION: 1. No acute findings. Postoperative cholecystectomy with mildly prominent biliary ductal system. Bladder decompressed by Hall. Heriberto Abbott MD Chest X-Ray 12/08/16 1634 Signed Impressions: Service Date/Time: November 18:13 - CONCLUSION: No evidence of acute cardiopulmonary disease. Rudy Schaeffer MD Objective Remarks GENERAL: in Mild distress SKIN: Warm and dry. HEAD: Normocephalic. EYES: No scleral icterus. No injection or drainage. NECK: Supple, trachea midline. No JVD or lymphadenopathy. CARDIOVASCULAR: Regular rate and rhythm without murmurs, gallops, or rubs. RESPIRATORY: Breath sounds equal bilaterally. No accessory muscle use. GASTROINTESTINAL: Abdomen soft, mildly tender, nondistended. Positive bowel sounds MUSCULOSKELETAL: No cyanosis, or edema. BACK: Nontender without obvious deformity. No CVA tenderness. A/P Problem List: (1) SIRS (systemic inflammatory response syndrome) ICD Code: R65.10 Status: Acute (2) Abdominal pain ICD Code: R10.9 Status: Acute Assessment and Plan 36-year-old female with 1-SIRS: May be secondary to intra-abdominal process versus bilateral. Currently on IV Levaquin pending culture reports 2-Febrile episode: Resolved. Chest x-ray without any cardio pulmonary disease, CT abdomen/pelvics negative . Flu A and B antigens negative. 2-D echo without any evidence of endocarditis. UDS positive for cocaine and marijuana. Continue with current empiric antibiotic and will also check for HIV 3-Abdominal pain associated with diarrheal episode: CT abdomen/pelvic with no acute finding. C. difficile PCR negative. Starts Imodium and continue with Lactinex 4-Hypokalemia: Resolved 5-DVT prophylaxis: Bilateral SCDs Discharge Planning Likely discharge 12/11/16 Cuong Lind MD Dec 10, 2016 11:01
[2016-12-10] MEDS ORDERED: LOPERAMIDE HCL 2 MG CAP PO PRN (11:15)
[2016-12-10] MEDS ORDERED: PHENOL 1.4% SOLN 180 ML BTL OROPHARYNG PRN (21:30)
[2016-12-11] MEDS: ACETAMINOPHEN/HYDROcodone 325 MG/7.5 MG TAB PO PRN ×2 (01:18→06:31)
[2016-12-11 03:57] VITALS: BP 135/84; PULSE 71; RESP 20; TEMP 97.5; O2SAT 98
[2016-12-11 05:38] LABS: AUTOMATED NEUTROPHIL # 3.5 TH/MM3 (1.8-7.7); BASOPHIL # 0.1 TH/MM3 (0-0.2); BASOPHIL % 1.2 % (0.0-2.0); EOSINOPHIL # 0.2 TH/MM3 (0-0.4); EOSINOPHIL % 2.2 % (0.0-4.0); HEMATOCRIT 34.8 % (35.0-46.0); HEMO FLAGS DIFF FINAL; LYMPH % 38.4 % (9.0-44.0); LYMPHOCYTE # 2.7 TH/MM3 (1.0-4.8); MEAN CELL VOLUME 82.8 FL (80.0-100.0); MEAN CORPUSCULAR HEMOGLOBIN 27.3 PG (27.0-34.0); MONO % 8.3 % (0.0-8.0); NEUT % 49.9 % (16.0-70.0); PLATELET COUNT 282 TH/MM3 (150-450); RED BLOOD COUNT 4.21 MIL/MM3 (4.00-5.30); RED CELL DISTRIBUTION WIDTH 15.8 % (11.6-17.2); WHITE BLOOD COUNT 7.1 TH/MM3 (4.0-11.0)
[2016-12-11] MEDS: diphenhydrAMINE HCL 25 MG CAP PO PRN (06:28)
[2016-12-11 08:00] VITALS: BP 136/92; PULSE 77; RESP 16; TEMP 98.1; O2SAT 97
[2016-12-11] MEDS ORDERED: NYST500000 PO (08:52)
--- NOTE | 2016-12-11 08:54 | HHI.PR ---
Subjective Remarks Follow-up SIRS/febrile episode/diarrhea episode 12/09/16-patient seen and examined, continue to spike fevers and reported diarrheal episode. She complains of abdominal pain. 12/10/16-patient seen and examined, afebrile. Still complains of diarrheal episode. UDS positive for cocaine, marijuana. 12/11/16-patient seen and examined, no acute event overnight and currently afebrile. HIV antibody is negative Objective Vitals Vital Signs Date Time Temp Pulse Resp B/P Pulse Ox O2 Delivery O2 Flow Rate FiO2 12/11/16 03:57 97.5 71 20 135/84 98 12/10/16 23:59 98.3 73 20 155/104 99 12/10/16 20:18 64 12/10/16 20:00 97.9 66 20 171/105 100 12/10/16 16:21 97.8 70 18 137/65 98 12/10/16 12:33 97.3 62 18 120/81 100 I/O 12/10/16 12/10/16 12/10/16 12/11/16 12/11/16 12/11/16 07:00 15:00 23:00 07:00 15:00 23:00 Intake Total 1374 ml 497 ml 320 ml 480 ml Output Total 1100 ml 425 ml 300 ml 1100 ml Balance 274 ml 72 ml 20 ml -620 ml Intake Oral 720 ml 497 ml 320 ml 480 ml IV Total 654 ml 0 ml 0 ml Output Urine Total 1100 ml 425 ml 300 ml 1100 ml # Bowel Movements 1 1 0 # Sanitary Pads 1 Pads Result Diagram: 12/11/16 0408 12/10/16 0400 Imaging Last Impressions Abdomen/Pelvis CT 12/09/16 0000 Signed Impressions: Service Date/Time: Friday, December 09, 2016 00:54 - CONCLUSION: 1. No acute findings. Postoperative cholecystectomy with mildly prominent biliary ductal system. Bladder decompressed by Hall. Heriberto Abbott MD Chest X-Ray 12/08/16 1634 Signed Impressions: Service Date/Time: November 18:13 - CONCLUSION: No evidence of acute cardiopulmonary disease. Rudy Schaeffer MD Objective Remarks GENERAL: in Mild distress SKIN: Warm and dry. HEAD: Normocephalic. EYES: No scleral icterus. No injection or drainage. NECK: Supple, trachea midline. No JVD or lymphadenopathy. CARDIOVASCULAR: Regular rate and rhythm without murmurs, gallops, or rubs. RESPIRATORY: Breath sounds equal bilaterally. No accessory muscle use. GASTROINTESTINAL: Abdomen soft, mildly tender, nondistended. Positive bowel sounds MUSCULOSKELETAL: No cyanosis, or edema. BACK: Nontender without obvious deformity. No CVA tenderness. Procedures none A/P Problem List: (1) SIRS (systemic inflammatory response syndrome) ICD Code: R65.10 Status: Acute (2) Abdominal pain ICD Code: R10.9 Status: Acute Assessment and Plan 36-year-old female with 1-SIRS: May be secondary to intra-abdominal process versus viral. Resolved therefore will discontinue Levaquin 2-Febrile episode: Resolved. Chest x-ray without any cardio pulmonary disease, CT abdomen/pelvics negative . Flu A and B antigens negative. 2-D echo without any evidence of endocarditis. UDS positive for cocaine and marijuana. Child B antibody negative. Discontinue Levaquin 3-Abdominal pain associated with diarrheal episode: CT abdomen/pelvic with no acute finding. C. difficile PCR negative. Continue Imodium and continue with Lactinex 4-Hypokalemia: Resolved 5-DVT prophylaxis: Bilateral SCDs Discharge Planning Likely discharge 12/11/16 Cuong Lind MD Dec 11, 2016 08:54
--- NOTE | 2016-12-11 08:54 | HHI.DS ---
Discharge Summary Admission Date Dec 08, 2016 at 19:02 Discharge Date: Dec 11, 2016 Admitting Diagnosis sepsis (1) SIRS (systemic inflammatory response syndrome) ICD Code: R65.10 (2) Abdominal pain ICD Code: R10.9 Procedures none Brief History - From Admission 36 y/o female with a history of HTN, anxiety and depression who is currently homeless presented to the ER with complains of cough, sore throat, weakness, nausea, vomiting and diarrhea. Patient states all her symptoms began 2 days ago and she has been very weak. She states she has had vomiting 2-3 times a day and diarrhea 5 times a day. She currently is sleeping on a friends floor and does not think anyone is sick. She states last week she thought she has a yeast infection and treated it with Monistat but is unsure if she still has it. She is acting as if she is in sever pain and moaning. She states her abdominal pain radiates to her back and is sharp. When she is asked many questions she moans louder. She does deny any chest pain or short of breath. Patient does not take any medications at home due to lack of insurance. CBC/BMP: 12/11/16 0408 12/10/16 0400 Significant Findings Laboratory Tests Test 12/08/16 12/08/16 12/09/16 12/09/16 16:40 17:00 03:28 09:45 White Blood Count 22.0 TH/MM3 15.7 TH/MM3 (4.0-11.0) (4.0-11.0) Mean Corpuscular Hemoglobin 26.3 PG 26.7 PG (27.0-34.0) (27.0-34.0) Neutrophils (%) (Auto) 89.4 % 79.3 % (16.0-70.0) (16.0-70.0) Lymphocytes (%) (Auto) 6.0 % (9.0-44.0) Neutrophils # (Auto) 19.6 TH/MM3 12.4 TH/MM3 (1.8-7.7) (1.8-7.7) Creatinine 1.02 MG/DL 1.01 MG/DL (0.50-1.00) (0.50-1.00) Estimat Glomerular Filtration 73 ML/MIN (>89) 74 ML/MIN (>89) Rate Total Protein 8.9 GM/DL (6.4-8.2) Urine Occult Blood TRACE (NEG) Urine Bacteria RARE /hpf (NONE) Monocytes # (Auto) 1.1 TH/MM3 (0-0.9) Potassium Level 3.2 MEQ/L (3.5-5.1) Urine Opiates Screen POS (NEG) Urine Benzodiazepines Screen POS (NEG) Urine Cocaine Screen POS (NEG) Urine Cannabinoids Screen POS (NEG) Test 12/10/16 12/11/16 04:00 04:08 White Blood Count 12.2 TH/MM3 (4.0-11.0) Hemoglobin 11.1 GM/DL 11.5 GM/DL (11.6-15.3) (11.6-15.3) Hematocrit 34.8 % 34.8 % (35.0-46.0) (35.0-46.0) Mean Corpuscular Hemoglobin 26.6 PG (27.0-34.0) Mean Corpuscular Hemoglobin 31.9 % Concent (32.0-36.0) Monocytes (%) (Auto) 8.6 % (0.0-8.0) 8.3 % (0.0-8.0) Neutrophils # (Auto) 8.3 TH/MM3 (1.8-7.7) Monocytes # (Auto) 1.1 TH/MM3 (0-0.9) Chloride Level 109 MEQ/L (98-107) Estimat Glomerular Filtration 86 ML/MIN (>89) Rate Calcium Level 8.4 MG/DL (8.5-10.1) Albumin 2.8 GM/DL (3.4-5.0) Imaging Last Impressions Abdomen/Pelvis CT 12/09/16 0000 Signed Impressions: Service Date/Time: Friday, December 09, 2016 00:54 - CONCLUSION: 1. No acute findings. Postoperative cholecystectomy with mildly prominent biliary ductal system. Bladder decompressed by Hall. Heriberto Abbott MD Chest X-Ray 12/08/16 1634 Signed Impressions: Service Date/Time: November 18:13 - CONCLUSION: No evidence of acute cardiopulmonary disease. Rudy Schaeffer MD PE at Discharge GENERAL: in Mild distress SKIN: Warm and dry. HEAD: Normocephalic. EYES: No scleral icterus. No injection or drainage. NECK: Supple, trachea midline. No JVD or lymphadenopathy. CARDIOVASCULAR: Regular rate and rhythm without murmurs, gallops, or rubs. RESPIRATORY: Breath sounds equal bilaterally. No accessory muscle use. GASTROINTESTINAL: Abdomen soft, mildly tender, nondistended. Positive bowel sounds MUSCULOSKELETAL: No cyanosis, or edema. BACK: Nontender without obvious deformity. No CVA tenderness. Hospital Course 1-SIRS: May be secondary to intra-abdominal process versus viral. Resolved therefore will discontinue Levaquin 2-Febrile episode: Resolved. Chest x-ray without any cardio pulmonary disease, CT abdomen/pelvics negative . Flu A and B antigens negative. 2-D echo without any evidence of endocarditis. UDS positive for cocaine and marijuana. Child B antibody negative. Discontinue Levaquin 3-Abdominal pain associated with diarrheal episode: CT abdomen/pelvic with no acute finding. C. difficile PCR negative. Continue Imodium and continue with Lactinex 4-Hypokalemia: Resolved 5-DVT prophylaxis: Bilateral SCDs Pt Condition on Discharge: Stable Discharge Disposition: Discharge Home Discharge Time: <= 30 minutes Discharge Instructions DIET: Follow Instructions for: Heart Healthy Diet Activities you can perform: Regular-No Restrictions Follow up Referrals: PCP Follow-up - 1 Week New Medications: Nystatin (Nystatin) 500,000 Unit Tab [id number] UNITS PO Q8H Infection Days 5 Ref 0 TAB Cuong Lind MD Dec 11, 2016 08:54
[2016-12-11] MEDS: LEVOFLOXACIN 750 MG PREMIX INJ 150 ML IV SCH (09:00)
[2016-12-11] MEDS: SODIUM CHLORIDE 0.9% FLUSH 5 ML FLUSH FLUSH SCH (09:00)
== END 2016-12-11 10:59 | disposition home or self-care (01) | DRG 872 ==
LOC: NEPC 16:20 → INTOOBSV 19:02 → NEDA 19:02 → OBSVTOIN 19:02 → N07B 21:12
PROVIDERS: ADMIT Hospitalist; ATTEND Hospitalist
DX: R65.10 Systemic inflammatory response syndrome (SIRS) of non-infectious origin without acute organ dysfunction (principal); I10 Essential (primary) hypertension; E87.6 Hypokalemia; R50.9 Fever, unspecified; R10.9 Unspecified abdominal pain; R19.7 Diarrhea, unspecified; Z59.0 Homelessness; F32.9 Major depressive disorder, single episode, unspecified; F41.9 Anxiety disorder, unspecified; F12.90 Cannabis use, unspecified, uncomplicated; F14.90 Cocaine use, unspecified, uncomplicated
CPT/HCPCS: 51702; 71010; 74177; 80048; 80053; 80307; 81001; 83605; 83690; 84703; 85025; 86703; 87040; 87081; 87328; 87329; 87493; 87641; 87804; 87880; 93005; 93306; 96361; 96365; 96375; J0692; J1956; J2270; J2405; J3370; J7030; J7050; Q9963; Q9967

== ENCOUNTER 2017-09-06 09:59 | Emergency (ER) | payer SELFPAY ==
[~2017-09-06] VITALS: Ht 170.2 cm; Wt 115.0 kg
[~2017-09-06 09:59] MED LIST changes: -CLIN1CAP6 PO; -LORTA5 PO; +NYST500000 PO
[2017-09-06 10:00] VITALS: BP 140/97; PULSE 94; RESP 18; TEMP 98.9; O2SAT 99
[2017-09-06] MEDS ORDERED: predniSONE 20 MG TAB PO ONE (10:30)
--- NOTE | 2017-09-06 10:33 | PD ---
HPI Chief Complaint: Cold / Flu Symptoms Time Seen by Provider: 10:17 Travel History International Travel<30 days: No Contact w/Intl Traveler<30days: No Traveled to known affect area: No History of Present Illness HPI 37-year-old female presents to the ED for evaluation of 3 day history of cough, fevers, sinus congestion, rhinorrhea. Onset gradual. Patient has not measured a temperature at home. She states her cough is occasionally productive of green mucus. She states that coughing "hurt my ribs." She endorses history of seasonal allergies. She denies ear pain, chest pain, palpitations, abdominal pain, nausea, vomiting. She denies sick contacts. She states that she treated at home with Zyrtec no improvement of symptoms. She is a current smoker. She did not receive this years flu immunization. PFSH Past Medical History Blood Disorders: No Anxiety: Yes Depression: Yes Cancer: No Endocrine: No Genitourinary: No Hypertension: Yes Reproductive: No Respiratory: No Immunizations Current: Yes ?: Not LMP: 08/28/17 : 5 Para: 5 Tubal Ligation: Yes Past Surgical History Section: Yes Cholecystectomy: Yes Other Surgery: Yes (TUBAL LIGATION ) Social History Alcohol Use: No Tobacco Use: No Substance Use: Yes (weed, has taken lortab, percocet, cocaine recently) Allergies-Medications (Allergen,Severity, Reaction): Coded Allergies: amoxicillin (Unverified Allergy, Intermediate, hives, 09/06/17) penicillin G (Unverified Allergy, Intermediate, hives, 09/06/17) Reported Meds & Prescriptions Reported Meds & Active Scripts Active Prednisone 20 Mg Tab 20 Mg PO DAILY 5 Days Tessalon Perles (Benzonatate) 100 Mg Cap 200 Mg PO TID PRN Ibuprofen 600 Mg Tab 600 Mg PO Q8H PRN Proair Hfa 8.5 GM Inh (Albuterol Sulfate) 90 Mcg/Act Aer 2 Puff INH Q4-6H PRN 108 mcg/actuation Azithromycin 250 Mg Tab 250 Mg PO DIRECTED Take 2 tabs (500 mg) on day 1 then 1 tab daily x 4 days. Review of Systems Except as stated in HPI: all other systems reviewed are Neg Physical Exam Narrative GENERAL: Well-nourished, well-developed , ill-appearing Afro-[place]ong[place]ian female in no acute distress. SKIN: Warm and dry. HEAD: Normocephalic. Atraumatic. EYES: No scleral icterus. No injection or drainage. PERRLA. EOMI. ENT: Pearly marquez tympanic membranes bilaterally. Nasal mucosa is moist. Oropharynx mild posterior erythema. No edema or exudate. Airway patent. Uvula midline. NECK: Supple, trachea midline. No JVD or lymphadenopathy. CARDIOVASCULAR: Regular rate and rhythm without murmurs, gallops, or rubs. RESPIRATORY: Breath sounds equal bilaterally. End expiratory wheezing in bilateral lung dos santos. Patient has a wet sounding cough. No accessory muscle use. GASTROINTESTINAL: Abdomen soft, non-tender, nondistended. + Bowel sounds MUSCULOSKELETAL: No cyanosis, or edema. BACK: Nontender without obvious deformity. No CVA tenderness. Data Data Last Documented VS Vital Signs Date Time Temp Pulse Resp B/P (MAP) Pulse Ox O2 Delivery O2 Flow Rate FiO2 09/06/17 11:55 09/06/17 10:00 98.9 94 18 99 Orders Orders Influenzae A/B Antigen (09/06/17 10:28) Albuterol Neb (Albuterol Neb) (09/06/17 10:30) Prednisone (Deltasone) (09/06/17 10:30) Chest, Pa & Lat (09/06/17 ) Ed Discharge Order (09/06/17 11:26) MDM Medical Decision Making Medical Screen Exam Complete: Yes Emergency Medical Condition: Yes Differential Diagnosis Influenza versus seasonal allergies versus viral illness versus bronchitis versus URI versus other Narrative Course 37-year-old female presents to the ED for evaluation of 3 day history of cough, fevers, sinus congestion, rhinorrhea. Onset gradual. Patient has not measured a temperature at home. She states her cough is occasionally productive of green mucus. She states that coughing "hurt my ribs." Vitals reviewed. On exam the patient is ill-appearing, has a wet sounding cough, wheezes in the bilateral lung dos santos. ENT exam is unremarkable. She was administered 20 mg of prednisone and DuoNeb 2. Flu swab negative. X-ray with lower lobe infiltrate versus atelectasis. This is upper respiratory infection. Patient's prescribed azithromycin, prednisone, albuterol inhaler, Tessalon Perles. She is instructed to take the medication as prescribed, follow up with her primary care provider. We discussed reasons to return to the ED. She indicated understanding of the instructions and is agreeable to the care plan. The patient is stable and discharged home. Diagnosis Primary Impression: Upper respiratory infection Qualified Codes: J06.9 - Acute upper respiratory infection, unspecified Referrals: Primary Care Physician Patient Instructions: General Instructions, Upper Respiratory Infection (ED) Additional Instructions: Rest, hydrate. Stop smoking! Resume normal, gentle activities as tolerated. Take medication as prescribed. Follow-up with the primary care provider. Return to the ED for any urgent or emergent medical condition. Med/Other Pt SpecificInfo: Prescription(s) given Scripts Prednisone (Prednisone) 20 Mg Tab 20 MG PO DAILY for 5 Days, #5 TAB 0 Refills Prov: Arlin Bruce MD 09/06/17 Benzonatate (Tessalon Perles) 100 Mg Cap 200 MG PO TID Y for COUGH, #20 CAP 0 Refills Prov: Arlin Bruce MD 09/06/17 Ibuprofen (Ibuprofen) 600 Mg Tab 600 MG PO Q8H Y for PAIN, #15 TAB 0 Refills Prov: Arlin Bruce MD 09/06/17 Albuterol 8.5 GM Inh (Proair Hfa 8.5 GM Inh) 90 Mcg/Act Aer 2 PUFF INH Q4-6H Y for SHORTNESS OF BREATH, #1 INHALER 0 Refills 108 mcg/actuation Prov: Arlin Bruce MD 09/06/17 Azithromycin (Azithromycin) 250 Mg Tab 250 MG PO DIRECTED for Infection, #6 TAB 0 Refills Take 2 tabs (500 mg) on day 1 then 1 tab daily x 4 days. Prov: Arlin Bruce MD 09/06/17 Disposition: 01 DISCHARGE HOME Condition: Stable Randa Meier Sep 06, 2017 10:33
[2017-09-06] MEDS: RESP: ALBUTEROL 2.5 MG/3 ML NEB (SCH) INH ×2 (10:36→10:37)
[2017-09-06] MEDS ORDERED: AZIT250T3 PO (11:02)
[2017-09-06] MEDS ORDERED: BENZ100 PO (11:02)
[2017-09-06] MEDS ORDERED: ALBUAER3 INH (11:02)
[2017-09-06] MEDS ORDERED: IBUP-232 PO (11:02)
[2017-09-06] MEDS ORDERED: PRED20 PO (11:22)
--- NOTE | 2017-09-06 11:46 | RADRPT ---
EXAM DATE/TIME: 09/06/2017 11:13 [facility] COMPARISON: No previous studies available for comparison. INDICATIONS : Cough x 3 days. MEDICAL HISTORY : Hypertension. SURGICAL HISTORY : Cholecystectomy. Tubal ligation. ENCOUNTER: Initial ACUITY: 1 day PAIN SCORE: 0/10 LOCATION: Bilateral chest FINDINGS: PA and lateral views of the chest demonstrate left basilar subsegmental atelectasis. Right lung clear . No evidence of mass or effusion. The cardiomediastinal contours are unremarkable. Osseous structu res are intact. CONCLUSION: 1. Left basilar density could be atelectasis or minimal infiltrate. Cuong Phan MD on September 06, 2017 at 11:44 Board Certified Radiologist. This report was verified electronically.
== END 2017-09-06 12:06 | disposition home or self-care (01) ==
LOC: NEPK 09:59
DX: J06.9 Acute upper respiratory infection, unspecified (principal); F41.9 Anxiety disorder, unspecified; F32.9 Major depressive disorder, single episode, unspecified; I10 Essential (primary) hypertension; F17.200 Nicotine dependence, unspecified, uncomplicated; Z79.899 Other long term (current) drug therapy; Z88.0 Allergy status to penicillin
CPT/HCPCS: 71020; 87804; 94640; 94664; 99284; J7512; J7613